=== PATIENT | male | born 1975 | race Caucasian/White ===

== ENCOUNTER 2016-05-21 14:59 | Emergency (ER) | payer OTHER ==
[2016-05-21 15:09] VITALS: BP 165/88
--- NOTE | 2016-05-21 16:08 | UC ---
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 both nares no trauma no recent uri although he says he has chronic nasal congestion - History of Current Complaint Chief Complaint: UCGeneralIllness Stated Complaint: NOSE BLEED Time Seen by Provider: 05/21/16 16:07 Onset/Duration: Sudden Onset, Lasting Hours - 2 Timing: Constant Severity Initially: Moderate Severity Currently: Mild Pain Intensity: 0 Pain Scale Used: 0-10 Numeric Character: Heavy Aggravating Factor(s): Nothing Alleviating Factor(s): Pressure Associated Signs And Symptoms: Positive: Negative - Allergies/Home Medications Allergies/Adverse Reactions: Allergies Allergy/AdvReac Type Severity Reaction Status Date / Time No Known Allergies Allergy Verified 05/21/16 15:09 Home Medications: Home Medications Aspirin [Aspirin Adult Low Dose] 81 mg PO DAILY 05/21/16 [History Confirmed 09/29] Lisinopril [Zestril 10 MG-] 10 mg PO DAILY 05/21/16 [History Confirmed 05/21/16] Pravastatin Sodium [Pravachol] 40 mg PO DAILY 05/21/16 [History Confirmed ] metFORMIN* [Glucophage*] 1,000 mg PO BID 05/21/16 [History Confirmed 05/21/16] PMH/Surg Hx/FS Hx/Imm Hx Previously Healthy: Yes Endocrine History Of: Reports: Diabetes Cardiovascular History Of: Reports: Hypertension - Surgical History Surgical History: Yes Surgery Procedure, Year, and Place: LEFT KNEE X 2. B/L WRIST. VASCECTOMY - Family History Known Family History: Positive: Cardiac Disease, Hypertension, Diabetes - Social History Alcohol Use: Occasionally Substance Use Type: None Smoking Status (MU): Former Smoker Type: Cigarettes When Did the Patient Quit Smoking/Using Tobacco: 2012 Review of Systems Constitutional: Negative Skin: Negative Eyes: Negative ENT: Epistaxis Respiratory: Negative Cardiovascular: Negative Gastrointestinal: Negative Genitourinary: Negative Motor: Negative Neurovascular: Negative Musculoskeletal: Negative Neurological: Negative Psychological: Negative All Other Systems Reviewed And Are Negative: Yes Physical Exam Triage Information Reviewed: Yes Appearance: Well-Appearing, No Pain Distress, Well-Nourished Vital Signs: Initial Vital Signs Temp 98 F 05/21/16 15:02 Pulse 92 05/21/16 15:02 Resp 16 05/21/16 15:02 BP 165/88 05/21/16 15:02 Pulse Ox 99 05/21/16 15:02 Vital Signs Reviewed: Yes Eyes: Positive: Conjunctiva Clear ENT: Positive: Hearing grossly normal, Pharynx normal, Nasal drainage - both both nares. Negative: Tonsillar swelling, Tonsillar exudate, Trismus Neck: Positive: Supple, Nontender Respiratory: Positive: Lungs clear, Normal breath sounds, No respiratory distress, No accessory muscle use Cardiovascular: Positive: RRR, No Murmur Abdomen Description: Positive: Nontender, No Organomegaly, Soft Musculoskeletal: Positive: ROM Intact, No Edema Neurological Exam: Normal Psychological Exam: Normal Skin Exam: Normal Epistaxis Nasal Course/Dx - Course Course Of Treatment: blood stopped with pressure. no definitive bleeding site note. did not rebleed after a period of observation - Differential Dx/Diagnosis Provider Diagnoses: anterior epistaxis Discharge - Discharge Plan Condition: Stable Disposition: HOME Patient Education Materials: Nosebleed (ED) Referrals: Non Staff,Doctor [Primary Care Provider] - Additional Instructions: take it easy today no bending over/lifting neosynephrine 2 sprays each nostril 3x day for 3 days vasoline in nostrils at bedtime [facility] for new or worsening symptoms
[2016-05-21] MEDS ORDERED: Lidocaine 2% VISCOUS* 15 ML UDC TOPICAL ONE (16:19)
[2016-05-21] MEDS ORDERED: Phenylephrine 1% NASAL* 15 ML BOT BOTH NARES ONE (16:19)
== END 2016-05-21 17:32 | disposition home or self-care (01) ==
LOC: UCCORT 14:59
DX: R04.0 Epistaxis (principal); R09.81 Nasal congestion; I10 Essential (primary) hypertension; E11.9 Type 2 diabetes mellitus without complications; Z87.891 Personal history of nicotine dependence
CPT/HCPCS: 99201; A9270-GY; G0463